=== PATIENT | male | born 1950 | race Caucasian/White ===

== ENCOUNTER 2018-04-17 15:18 | Emergency (ER) | payer MEDICARE, MEDICAID ==
[~2018-04-17] VITALS: Ht 177.8 cm; Wt 69.8 kg
[~2018-04-17 15:18] MED LIST: NO HOME MEDS
[2018-04-17] MEDS ORDERED: tobramycin/dexamethasone ophthalmic suspension EACHEYE ONE (15:35)
[2018-04-17] MEDS ORDERED: TOBR5DRO2 EACHEYE (15:48)
[2018-04-17 15:59] VITALS: BP 184/112
== END 2018-04-17 16:02 | disposition home or self-care (01) ==
LOC: ER 15:19
DX: H10.9 Unspecified conjunctivitis (principal); I10 Essential (primary) hypertension; F17.200 Nicotine dependence, unspecified, uncomplicated; F12.90 Cannabis use, unspecified, uncomplicated; F03.90 Unspecified dementia, unspecified severity, without behavioral disturbance, psychotic disturbance, mood disturbance, and anxiety; Z86.73 Personal history of transient ischemic attack (TIA), and cerebral infarction without residual deficits
CPT/HCPCS: 99284